=== PATIENT | male | born 1940 | race Caucasian/White ===

== ENCOUNTER 2020-09-27 16:12 | Emergency (ER) | payer MEDICARE, OTHER ==
[~2020-09-27 16:12] MED LIST: ASPIRIN 325MG325 MG PO; BRILINTA90 MG PO; CARBIDOPA-LEVO1 EAC6 PO; FLOMAX0.4 MG PO; GLUCOPHAGE 500500 MG PO; LIPITOR TAB 2020 MG PO; PRINIVIL10 MG PO; ZANAFLEX4 MG PO
[2020-09-27 21:20] LABS: HEMOGLOBIN 13.9 gm/dl (14.0-17.5); RED BLOOD COUNT 5.32 M/UL (4.20-5.50); WHITE BLOOD COUNT 9.1 K/UL (4.5-11.0)
[2020-09-27 21:44] LABS: BUN/CREATININE RATIO 24 (0-10)
[2020-09-27] MEDS ORDERED: AZITHROMYCIN250 MG PO (21:56)
== END 2020-09-28 00:45 | disposition home or self-care (01) ==
LOC: ER1 16:12
PROVIDERS: Family Medicine
DX: U07.1 COVID-19 (principal); E11.9 Type 2 diabetes mellitus without complications; I25.10 Atherosclerotic heart disease of native coronary artery without angina pectoris; I10 Essential (primary) hypertension; G20 Parkinson's disease; Z98.61 Coronary angioplasty status
CPT/HCPCS: 71045; 80053; 82550; 82553; 83605; 83874; 84484; 85025; 99283; M0239; Q0239

== ENCOUNTER → 2022-05-23 | Outpatient (CLI) | payer MEDICARE, OTHER ==
[~2022-05-23] MED LIST changes: +AZITHROMYCIN250 MG PO
== END ==
LOC: RAD 11:17
DX: M25.562 Pain in left knee (principal)
CPT/HCPCS: 73564